=== PATIENT | male | born 1980 | race Caucasian/White ===

== ENCOUNTER 2020-03-05 10:51 | Outpatient (CLI) | payer OTHER | END 2020-03-05 20:29 | disposition home or self-care (01) | LOC: RAD 10:51 | DX: M54.5 Low back pain (principal); K59.00 Constipation, unspecified; K62.5 Hemorrhage of anus and rectum; N41.9 Inflammatory disease of prostate, unspecified ==

== ENCOUNTER 2022-10-13 10:27 | Outpatient (CLI) | payer OTHER | END 2022-10-13 19:22 | disposition home or self-care (01) | LOC: RAD 10:27 | PROVIDERS: ATTEND Pediatrics | DX: R10.9 Unspecified abdominal pain (principal); K59.00 Constipation, unspecified; R50.9 Fever, unspecified; E78.49 Other hyperlipidemia; Z87.19 Personal history of other diseases of the digestive system; Z09 Encounter for follow-up examination after completed treatment for conditions other than malignant neoplasm ==